=== PATIENT | female | born 1965 | race Caucasian/White ===

== ENCOUNTER 2016-10-27 23:22 | Emergency (ER) | payer BC ==
[~2016-10-27 23:22] MED LIST: ALBUTEROL20 ml INH; BENZONATATE PO; CHANTIX PO; CHANTIX1 MG PO; COMBIVENT U/D3 M2 INH; DOXYCYCLINE HY100 M3 PO; HUMIBID-LA600 MG PO; HYDROCODON-ACE1 EAC7 PO; LEVAQUIN750 MG PO; NO MEDICATIONS; OMNICEF300 M1 PO; PREDNISONE PO; PREDNISONE10 MG/DOSE PO; PROMETH-CODEIN 65 ML PO; PROTONIX PO; ROBITUSSIN A-C S5 ML PO; SODIUM CHLORIDE4 ML INH; SYMBICORT INH; TYLENOL325 M1 PO; ZITHROMAX500 MG PO
[2016-10-27] MEDS ORDERED: NO MEDICATIONS (23:32)
== END 2016-10-28 00:16 | disposition home or self-care (01) ==
LOC: SED 23:22
DX: L03.115 Cellulitis of right lower limb (principal); J44.9 Chronic obstructive pulmonary disease, unspecified; F17.210 Nicotine dependence, cigarettes, uncomplicated
CPT/HCPCS: 99283

== ENCOUNTER 2016-11-09 20:43 | Emergency (ER) | payer BC ==
[2016-11-09 22:55] LABS: DIFF IND NO
[2016-11-09 23:06] LABS: POC - CKMB <1.0 ng/mL (0.0-7.9); POC - TROPONIN <0.05 ng/mL (<=0.05)
[2016-11-09 23:58] LABS: WHITE BLOOD COUNT 8.9 X10e3 (4.0-10.5)
[2016-11-09 23:59] LABS: HEMOGLOBIN 12.6 gm/dL (12.0-16.0); RED BLOOD COUNT 4.33 X10e (3.90-5.30)
[2016-11-10] LABS: HEMATOCRIT 39.2 % (35.0-45.0); MEAN CELL VOLUME 90.5 FL (83-96)
[2016-11-10 00:01] LABS: MEAN CORPUSCULAR HGB CONC 32.1 g/dL (30-36); MEAN PLATELET VOLUME 8.5 FL (6.5-11.5); PLATELET COUNT 250 X10e3 (140-420); RED CELL DISTRIBUTION WIDTH 13.6 % (11.0-15.5)
[2016-11-10 00:02] LABS: EOSINOPHIL% 2.4 % (0.0-7.0); LYMPHOCYTE% 35.2 % (17.0-45.0); MONOCYTE% 5.7 % (3.0-12.0); NEUTROPHIL% 55.9 % (40-75)
[2016-11-10 00:03] LABS: BASOPHIL% 0.8 % (0-2.5); LYMPHOCYTE# 3.1 X10e3 (1.0-3.5); MONOCYTE# 0.5 X10e3 (0-1.0)
[2016-11-10 00:04] LABS: BASOPHIL# 0.1 X10e3 (0-0.3); EOSINOPHIL# 0.2 X10e3 (0-0.7)
== END 2016-11-10 02:14 | disposition home or self-care (01) ==
LOC: CED 20:43
PROVIDERS: Emergency Medicine
DX: L03.115 Cellulitis of right lower limb (principal); K21.9 Gastro-esophageal reflux disease without esophagitis; I10 Essential (primary) hypertension; J44.9 Chronic obstructive pulmonary disease, unspecified; Z90.710 Acquired absence of both cervix and uterus; Z90.49 Acquired absence of other specified parts of digestive tract; F17.210 Nicotine dependence, cigarettes, uncomplicated
CPT/HCPCS: 36415; 82553; 84484; 85025; 87040; 99283; J2407; J7060

== ENCOUNTER 2017-01-04 20:08 | Emergency (ER) | payer BC ==
[~2017-01-04] VITALS: Ht 170.2 cm; Wt 64.4 kg
--- NOTE | ~2017-01-04 | EKG ---
PATIENT: JERMAN MOORE UNIT #: [id number] Ventricular Rate: 86 BPM Atrial Rate: 86 BPM P-R Interval: 154 ms QRS Duration: 94 ms Q-T Interval: 416 ms QTC Calculation(Bezet): 497 ms P [place]: 73 degrees Calculated R [place]: 73 degrees Calculated T [place]: 56 degrees Diagnosis Line: Normal sinus rhythm Diagnosis Line: Possible Left atrial enlargement Diagnosis Line: Prolonged QT Diagnosis Line: Abnormal ECG Diagnosis Line: When compared with ECG of 09-MAY-2016 12:02, Diagnosis Line: Nonspecific T wave abnormality now evident in Diagnosis Line: Anterior leads Diagnosis Line: Confirmed by MEHNAZ MYERS MD ([id number]) on 01/05/2017 Diagnosis Line: 5:12:11 PM INTERPRETING MD: LUCIA MCNAMARA
--- NOTE | ~2017-01-04 | CR72 ---
[facility] A Service of [facility] RADIOLOGY TEXT RESULTS PATIENT: JERMAN MOORE LOCATION: [facility] : 67 UNIT #: [id number] AGE: [address]: Ulises Middleton MD SEX: F ORDER DR: [id number] [facility] [address] [facility]. [place], [place] [address] [id number] MR#: [id number] Acc #: [id number] NAME: JERMAN MOORE : 1965 SEX: F STUDY DATE/TIME: 01/04/2017 22:19 UNIT: LORI ROOM: STUDY DESCRIPTION: CR Chest Single View Portable Attending Physician: Ulises Middleton M.D. Ordering Physician: Ulises Middleton M.D. Primary Care Physician: No Primary Care Physician MEDICAL IMAGING REPORT This report is preliminary unless electronic signature is present EXAM Chest x-ray 01/04/2017 HISTORY 51-year-old female in the ED complaining of shortness of air and productive cough beginning earlier today. History of COPD. TECHNIQUE AP portable upright chest x-ray. FINDINGS Pulmonary hyperinflation is noted compatible with the history of COPD. The lungs appear clear. No visible pulmonary infiltrate, pneumothorax, or pleural effusion. Heart size and pulmonary vascularity are within normal limits. No change since 09/19/2016. IMPRESSION 1. No active disease. 2. Pulmonary hyperinflation, likely COPD. 3. No change since 09/19/2016. Dictated by... Darius Wilkes M.D. THIS IS AN ELECTRONICALLY VERIFIED REPORT Darius Wilkes M.D. at 01/08/2017 11:06 PM MARGARETW/steve TD: 01/05/2017 13:05 JOB #: [id number] MEDICAL IMAGING REPORT [facility] A Service of [facility] RADIOLOGY TEXT RESULTS PATIENT: JERMAN MOORE LOCATION: [facility] : 67 UNIT #: [id number] AGE: [address]: Ulises Middleton MD SEX: F ORDER DR: Page 1 of 1 COPY
[2017-01-04 21:37] LABS: BASOPHIL% 0.4 % (0-2.5); EOSINOPHIL# 0.1 X10e3 (0-0.7); EOSINOPHIL% 1.4 % (0.0-7.0); HEMATOCRIT 38.3 % (35.0-45.0); HEMOGLOBIN 12.6 gm/dL (12.0-16.0); LYMPHOCYTE# 0.8 X10e3 (1.0-3.5); LYMPHOCYTE% 12.3 % (17.0-45.0); MEAN CELL VOLUME 91.2 FL (83-96); MEAN CORPUSCULAR HEMOGLOBIN 29.9 PG (28-34); MEAN CORPUSCULAR HGB CONC 32.8 g/dL (30-36); MEAN PLATELET VOLUME 8.1 FL (6.5-11.5); MONOCYTE# 0.2 X10e3 (0-1.0); MONOCYTE% 3.3 % (3.0-12.0); NEUTROPHIL# 5.4 X10e3 (1.5-7.1); NEUTROPHIL% 82.6 % (40-75); PLATELET COUNT 206 X10e3 (140-420); WHITE BLOOD COUNT 6.6 X10e3 (4.0-10.5)
[2017-01-04 21:38] LABS: DIFF IND NO
[2017-01-04 21:48] LABS: POC - CKMB 1.1 ng/mL (0.0-7.9); POC - TROPONIN <0.05 ng/mL (<=0.05)
[2017-01-04 21:59] LABS: ALBUMIN SERUM 3.8 g/dL (3.5-5.0); BILIRUBIN, DIRECT 0.1 mg/dL (0.0-0.2); BILIRUBIN,INDIRECT 0.2 mg/dL (0.0-0.9); BILIRUBIN,TOTAL 0.3 mg/dL (0.2-2.0); BUN/CREATININE RATIO 12.5; CALCIUM SERUM 8.8 mg/dL (8.4-10.2); CREATININE SERUM 0.8 mg/dL (0.6-1.4); POTASSIUM 3.9 mmol/L (3.5-5.1); PROTEIN TOTAL SERUM 7.1 g/dL (6.0-8.3)
== END 2017-01-05 00:08 | disposition home or self-care (01) ==
LOC: CED 20:08
DX: J44.1 Chronic obstructive pulmonary disease with (acute) exacerbation (principal); I10 Essential (primary) hypertension; F17.210 Nicotine dependence, cigarettes, uncomplicated; Z87.01 Personal history of pneumonia (recurrent); Z90.710 Acquired absence of both cervix and uterus; Z90.49 Acquired absence of other specified parts of digestive tract
CPT/HCPCS: 36415; 71010; 80048; 80076; 82553; 84484; 85025; 93005; 94640; 96374; 99285; J2930

== ENCOUNTER 2017-01-09 09:14 | Inpatient (IN) | payer BC ==
[~2017-01-09] VITALS: Ht 167.6 cm; Wt 66.2 kg
--- NOTE | ~2017-01-09 | OR ---
Unit #: [id number] #: [id number] Patient: JERMAN MOORE [id number] [address] [place], [place] [address] [id number] I MR#: [id number] NAME: JERMAN MOORE. ROOM: [facility] Date of Procedure: 01/10/2017 Admission Date: 01/09/2017 Surgeon: González Calhoun M.D. : 1965 Attending Physician: Aretha Kramer M.D. Primary Care Physician: Deidre Primary Care Physician PROCEDURE OPERATIVE NOTE PROCEDURE PERFORMED Diagnostic and therapeutic bronchoscopy with bronchial washing. INDICATION FOR PROCEDURE Unresolving pneumonia. PREOPERATIVE DIAGNOSIS Multifocal pneumonia. FINDINGS Diffuse thin, creamy kind of color secretions in the left lower lobe, right lower lobe, left main bronchus. PREMEDICATION MAC sedation. DESCRIPTION OF PROCEDURE An informed consent was obtained from the patient after explaining the benefit and risk of this procedure. Patient was prepped and positioned in a proper way. Then she was premedicated with propofol and lidocaine spray. The bronchoscope was advanced through the oral cavity and at the level of the vocal cords, 1% lidocaine was instilled. Then the bronchoscope was advanced in the trachea. At the level of the alexander, 1% lidocaine was instilled again and then the bronchoscope was advanced into the right main bronchus and the right upper lobe, right middle lobe, and right lower lobe were examined which appeared erythematous with diffuse thin secretion which was aspirated. The bronchoscope was retracted and then re-advanced in the left main bronchus and the left upper lobe, lingual, and left lower lobe were examined which appeared also erythematous with diffuse thin secretions that was aspirated and lavaged. Then washing was obtained from the left lower lobe which will be sent for microbiology and cytology. The bronchoscope was retracted out then and patient tolerated her procedure well with no immediate complications. Dictated by... González Calhoun M.D. EA/alexander Unit #: [id number] #: [id number] Patient: JERMAN MOORE TD: 01/10/2017 15:54 JOB #: [id number] PROCEDURE OPERATIVE NOTE Page 1 of 1 X GONZÁLEZ JOSÉ MD PROCEDURE OPERATIVE NOTE
--- NOTE | ~2017-01-09 | HP ---
Unit #: [id number] #: [id number] Patient: JERMAN MOORE [id number] [facility]. [place], [place] [address] [id number] I MR#: [id number] NAME: JERMAN MOORE. ROOM: 21338 Age: 51 Sex: F Admission Date: 01/09/2017 : 1965 Attending Physician: Norma Miner M.D. HISTORY AND PHYSICAL CHIEF COMPLAINT Short of air. HISTORY OF PRESENT ILLNESS The patient is a 51-year-old female with a past medical history of COPD, GERD, osteoarthritis, and irritable bowel syndrome who presented to the emergency department for evaluation of the above. The patient states that she has not been feeling well for about a week. She was seen by her primary care physician a week ago today and given prednisone, as well as an inhaler. She then presented to the emergency department on January 04, 2017. She was diagnosed with COPD and discharged home with prednisone and cefdinir which she took as prescribed. The symptoms have persisted and so she presented to the emergency department today for further evaluation. The patient states that she has had increasing shortness of breath and productive cough. She also reports chills and undocumented fever. She states that she has had decreased appetite but no vomiting. She states that she has loose stool at baseline which she attributes to irritable bowel syndrome. She denies any change in her weight. Upon arrival in the emergency department, temperature was 98.4, pulse 106, respirations 20, blood pressure was 118/63, oxygen saturation 99% on room air. A CT of the chest, PE protocol, showed no PE. However, scattered nodular infiltrates were noted. There is one lesion in the left upper lobe that appears to be cavitary. Septic emboli cannot be ruled out. She received vancomycin in the emergency department. She is being admitted to [facility] for evaluation and further treatment. Other notable labs include white blood cell count of 14.5 and lactic acid 2.2. PAST MEDICAL HISTORY 1. Admission to [facility] May 09 through May 17, 2016, for acute respiratory failure and pneumonia. 2. COPD, not on home oxygen. The patient saw Dr. Trisha Calhoun during the last admission for COPD. 3. GERD. 4. Osteoarthritis. 5. Irritable bowel syndrome. PAST SURGICAL HISTORY 1. Colonoscopy September 03, 2013, was normal. 2. Hysterectomy. 3. Cholecystectomy. Unit #: [id number] #: [id number] Patient: JERMAN MOORE 4. Elbow surgery. 5. Back surgery. 6. Right shoulder surgery. SOCIAL HISTORY The patient smokes a pack of cigarettes daily. She denies alcohol or illicit drug use. She works at the [employer]. FAMILY HISTORY Notable for both parents having COPD. ALLERGIES Acetaminophen. HOME MEDICATIONS None. REVIEW OF SYSTEMS A complete review of systems is negative except as indicated in the HPI. PHYSICAL EXAMINATION VITAL SIGNS: Temperature is 98.4, pulse 106, respirations 20, blood pressure 118/63, and oxygen saturation 99% on room air. GENERAL: Patient is a female who is awake, alert, and in no acute distress. HEENT: Head is atraumatic. Mucous membranes are moist. NECK: Supple. Trachea is midline. CARDIOVASCULAR: Regular rate and rhythm. LUNGS: Inspiratory and expiratory wheezes. Breathing is mildly labored with conversation. ABDOMEN: Soft and nontender with bowel sounds present in all four quadrants. EXTREMITIES: Nontender with no pedal edema. NEUROLOGIC: Patient is awake and alert. She follows commands. PSYCHIATRIC: Mood and affect are normal. Patient is cooperative. SKIN: Skin of examined areas is warm and dry. DIAGNOSTIC STUDIES LABORATORY: Complete blood count notable for white blood cell count of 14.5. Comprehensive metabolic panel notable for potassium of 3.3, ALT is 73, alkaline phosphatase 93. Lactic acid 2.2 IMAGING: CT of the chest, PE protocol, shows no PE. There are scattered nodular infiltrates. One in the left upper lobe is somewhat cavitary in appearance. Septic emboli could not be ruled out. Chest x-ray from January 04 showed pulmonary hyperinflation. ASSESSMENT The patient is a 51-year-old female with: 1. Pneumonia that has failed outpatient treatment with cefdinir. Cavitary lesions are noted on CT. The patient received vancomycin in the emergency department. 2. Sepsis with an initial lactic acid of 2.2. 3. Chronic obstructive pulmonary disease exacerbation with continued tobacco abuse. 4. Hypokalemia with potassium of 3.3. 5. Gastroesophageal reflux disease. 6. Osteoarthritis. Unit #: [id number] #: [id number] Patient: JERMAN MOORE 7. Irritable bowel syndrome. PLAN 1. Admit to intermediate level. 2. Normal saline at 75 mL/hour. 3. Healthy-heart diet. 4. N.p.o. after midnight for possible bronchoscopy. 5. Fall precautions. 6. Blood cultures x2. 7. Sputum culture and sensitivity. 8. Procalcitonin level. 9. Vancomycin IV and Zosyn IV pending further workup. 10. DuoNebs q.4 hours while awake and q.2 hours p.r.n. 11. Solu-Medrol 80 mg IV q.12 hours. 12. Mucinex 600 mg p.o. b.i.d. 13. Supplemental oxygen. 14. A 2D echo for further evaluation of possible septic emboli. 15. Check EKG and cardiac enzymes. 16. Sepsis protocol with repeat lactic acid. 17. Consult Dr. Bruno Calhoun regarding cavitary pneumonia and COPD. 18. Check urinalysis and urine tox screen. 19. Replace potassium. 20. Check magnesium level. 21. Protonix for GI prophylaxis since the patient will be on Solu-Medrol. 22. SCDs for DVT prophylaxis. 23. Repeat labs in the morning including magnesium. 24. Additional workup and consultants based on above. 1. Dictated by Norma Miner M.D. AW/mariella TD: 01/09/2017 15:33 JOB #: [id number] HISTORY AND PHYSICAL Page 1 of 1 X Norma Miner MD X HISTORY AND PHYSICAL
--- NOTE | ~2017-01-09 | EKG ---
PATIENT: JERMAN MOORE UNIT #: [id number] Ventricular Rate: 77 BPM Atrial Rate: 77 BPM P-R Interval: 138 ms QRS Duration: 84 ms Q-T Interval: 418 ms QTC Calculation(Bezet): 473 ms P [place]: 73 degrees Calculated R [place]: 67 degrees Calculated T Leslie: 66 degrees Diagnosis Line: Normal sinus rhythm Diagnosis Line: Cannot rule out Anterior infarct , age Diagnosis Line: undetermined Diagnosis Line: Abnormal ECG Diagnosis Line: When compared with ECG of 04-JAN-2017 22:47, Diagnosis Line: Nonspecific T wave abnormality no longer evident Diagnosis Line: in Anterior leads Diagnosis Line: Confirmed by MEHNAZ MYERS MD ([id number]) on 01/10/2017 Diagnosis Line: 7:16:42 PM INTERPRETING MD: LUCIA MCNAMARA
--- NOTE | ~2017-01-09 | CT16 ---
[facility] A Service of [facility] RADIOLOGY TEXT RESULTS PATIENT: JERMAN MOORE LOCATION: [facility] 335-01 : [birth year] UNIT #: [id number] AGE: [address]: Norma Miner MD SEX: F ORDER DR: [id number] [facility] [address] [facility]. [place], [place] [address] [id number] I MR#: [id number] #: [id number] NAME: JERMAN MOORE. : 1965 SEX: F STUDY DATE/TIME: 01/09/2017 11:47 UNIT: CEDOF ROOM: 96824 STUDY DESCRIPTION: CT Angio Chest for PE Attending Physician: Norma Miner M.D. Ordering Physician: Shweta Bautista Pa-C Primary Care Physician: Primary Care Physician No MEDICAL IMAGING REPORT This report is preliminary unless electronic signature is present EXAM CT scan of the chest with pulmonary embolus protocol INDICATIONS Shortness of air and cough for 6 days. TECHNIQUE Patient was given 80 mL of Isovue 370 and spiral imaging was performed through the chest. 3-D reconstructions through the pulmonary arteries generated. This CT exam was performed with one or more of the following radiation dose reduction techniques: automatic exposure control, adjustment of mA and/or kV according to patient size, and iterative reconstruction. FINDINGS The thyroid gland is normal. The aorta is normal in size and there is no dissection. There is optimal opacification of the pulmonary arteries and there is no CT evidence of pulmonary embolus. There is minimal apical fibrosis. There are small areas of nodular infiltrates scattered throughout the lungs measuring 15 mm or less. One has a tiny cavity within it and that is in the left upper lobe and that measures about 8 mm in diameter. The visualized portions of the upper abdomen are normal except for previous cholecystectomy. The bones are normal. IMPRESSION 1. No CT evidence of pulmonary embolus or aortic dissection. 2. There are a few small nodular infiltrates scattered throughout the lungs and one of these areas there is a small cavity within it. that is in the left upper lobe and it measures only about 7-8 mm in diameter. The appearance suggests some type of infectious etiology. Septic emboli cannot be completely excluded. Dictated by... [facility] A Service of [facility] RADIOLOGY TEXT RESULTS PATIENT: JERMAN MOORE LOCATION: [facility] 335-01 : [birth year] UNIT #: [id number] AGE: [address]: Norma Miner MD SEX: F ORDER DR: Manohar Jolly M.D. THIS IS AN ELECTRONICALLY VERIFIED REPORT Manohar Jolly M.D. at 01/09/2017 10:08 PM FEL/to TD: 01/09/2017 16:32 JOB #: [id number] MEDICAL IMAGING REPORT Page 1 of 1 COPY
--- NOTE | ~2017-01-09 | CO ---
Unit #: [id number] #: [id number] Patient: JERMAN MOORE [id number] [address] [place], [place] [address] [id number] I MR#: [id number] NAME: JERMAN MOORE. ROOM: 335 Age: 51 Sex: F Admission Date: 01/09/2017 : 1965 Attending Physician: Aretha Kramer M.D. Primary Care Physician: Deidre Primary Care Physician Consultation Date: 01/10/2017 CONSULTATION REPORT REASON FOR CONSULT Abnormal CT chest. HISTORY OF PRESENT ILLNESS This is a very pleasant 51-year-old female with past medical history significant for COPD, smoking, GERD, osteoarthritis who presented to the emergency room with difficulty breathing. Patient stated that she has been feeling sick for a week. She presented to her primary care physician a week ago where she was given azithromycin and prednisone. Patient went back to work the next day, and after 3 days of medicine, she was feeling worse so she finally presented to our emergency room, where she prescribed another course of steroid and antibiotics and then she was discharged home. Patient also went back to work the next day, and after 2 days at work, she felt that she was just worsening and not getting any better, so she finally presented to our emergency room. In the ER her workup was consistent with multifocal pneumonia concerning for septic emboli. PAST MEDICAL HISTORY 1. COPD. 2. GERD. 3. Osteoarthritis. 4. Irritable bowel syndrome. PAST SURGICAL HISTORY 1. Colonoscopy. 2. Hysterectomy. 3. Cholecystectomy. 4. Back surgery. 5. Elbow surgery. 6. Right shoulder surgery. SOCIAL HISTORY Patient smokes at least a pack a day. No history of alcohol or drug abuse. She works at the [employer]. FAMILY HISTORY COPD. ALLERGIES Acetaminophen. HOME MEDICATIONS None. Unit #: [id number] #: [id number] Patient: JERMAN MOORE REVIEW OF SYSTEMS Twelve-point review of systems was obtained and was negative except for what was mentioned in the HPI. PHYSICAL EXAMINATION GENERAL: The patient is in acute distress. VITAL SIGNS: Blood pressure is 121/62, respiratory rate 18, O2 saturation 96% on 4 liters nasal cannula. HEENT: Atraumatic, normocephalic. PERRLA, EOMI. NECK: Supple. No JVD. No lymphadenopathy. CHEST: Bilateral diffuse rhonchi and wheezing. HEART: S1, S2. No murmur, gallops or rubs. ABDOMEN: Soft, nontender. Bowel sounds are positive. No hepatosplenomegaly. EXTREMITIES: No edema or cyanosis. SKIN: No rashes. CHIEF OPERATING OFFICER: Awake, alert, oriented x3. No focal motor/sensory deficits. LABS AND OTHER TESTS LABS: Creatinine is 0.5, potassium 3.8, CO2 24. White blood count 14.9, hemoglobin 11.7. IMAGING: CT chest is noted and reviewed by me. ASSESSMENT 1. Acute hypoxic respiratory failure. 2. Pneumonia, likely gram-positive/atypical. 3. Acute exacerbation of COPD. 4. Smoking. 5. Chronic anemia. 6. GERD. 7. Osteoarthritis. PLAN 1. Patient's oxygen will be weaned down as tolerated. 2. Will continue gentle IV hydration. 3. IV steroids, bronchodilator and mucolytics. 4. Vancomycin, Zosyn pending culture. 5. Bronchoscopy today. 6. Patient was counselled more than 10 minutes for smoking cessation. She stated that she quit for 13 months in the past, but she picked up again. 7. Will add nicotine patches for now. 8. DVT prophylaxis. NOTE: I would like to thank Dr. Miner for allowing me to be part of this patient's care. Dictated by... González Calhoun M.D. EA/renato TD: 01/10/2017 15:20 Unit #: [id number] #: [id number] Patient: JERMAN MOORE S JOB #: [id number] CONSULTATION REPORT Page 1 of 1 X GONZÁLEZ JOSÉ MD X CONSULTATION REPORT
--- NOTE | ~2017-01-09 | DS ---
Unit #: [id number] #: [id number] Patient: JERMAN MOORE [id number] [address] [address] [id number] I MR#: [id number] NAME: JERMAN MOORE. ROOM: 335 Age: 51 Sex: F Admission Date: 01/09/2017 : 1965 Discharge Date: 01/14/2017 Attending Physician: Aretha Kramer M.D. Primary Care Physician: No Primary Care Physician DISCHARGE SUMMARY DISCHARGE DIAGNOSES 1. Acute hypoxic respiratory failure. 2. Pneumonia. 3. No septic emboli, no endocarditis. 4. Acute chronic obstructive pulmonary disease with exacerbation. 5. Smoking. 6. Transaminitis. 7. Gastroesophageal reflux disease. 8. Irritable bowel syndrome. 9. Osteoarthritis. CONSULTATION Dr. Calhoun. PROCEDURES Patient had bronchoscopy. LAB DATA Potassium 4.0, magnesium 2.1. Hepatitis panel negative. Sputum culture shows Klebsiella pneumoniae. WBC 11.6, hemoglobin 11.6, platelets 221. Legionella negative. HIV nonreactive. Urine culture negative. Echocardiogram shows no vegetation, ejection fraction 60-65%. ALLERGIES None. DISCHARGE MEDICATIONS 1. Nicotine 40 mg transdermal daily. 2. Omnicef 300 p.o. b.i.d. 3. Humibid LA 600 p.o. b.i.d. 4. Prednisone tapering dose. 5. Albuterol inhaler, 2 puffs inhalation 4x daily p.r.n. Unit #: [id number] #: [id number] Patient: JERMAN MOORE HOSPITALIZATION COURSE 51-year-old admitted because of shortness of breath. 1. Acute hypoxic respiratory failure with bilateral pulmonary emboli. Cultures growing Klebsiella. Patient had bronchoscopy. Culture is negative from bronchoscopy. Patient was started on broad spectrum antibiotics. Patient will be discharged on Omnicef upon discharge with albuterol. 2. COPD with exacerbation, started on Duo-Nebs and IV Solu-Medrol. Currently breathing better. Patient will be discharged on albuterol and prednisone tapering dose. 3. Initially, bilateral pulmonary infiltrates was started to be septic emboli and endocarditis but those two diagnoses has been ruled out. 4. Smoking, advised to quit. Patient will be discharged on nicotine patch. Discharge home. Follow with family physician on 1 week time[address] Follow with Dr. Calhoun, pulmonary, in 2 weeks time. Discharge time taken is 31 minutes. Dictated by... Clemente Thayer/anton TD: 01/14/2017 14:12 JOB #: [id number] DISCHARGE SUMMARY Page 1 of 1 X Aretha Kramer MD X DISCHARGE SUMMARY
[2017-01-09 10:02] LABS: BASOPHIL% 0.2 % (0-2.5); EOSINOPHIL# 0.1 X10e3 (0-0.7); EOSINOPHIL% 0.6 % (0.0-7.0); HEMATOCRIT 42.5 % (35.0-45.0); LYMPHOCYTE# 2.4 X10e3 (1.0-3.5); LYMPHOCYTE% 16.7 % (17.0-45.0); MEAN CELL VOLUME 90.9 FL (83-96); MEAN PLATELET VOLUME 7.9 FL (6.5-11.5); MONOCYTE# 0.8 X10e3 (0-1.0); MONOCYTE% 5.3 % (3.0-12.0); NEUTROPHIL# 11.2 X10e3 (1.5-7.1); NEUTROPHIL% 77.2 % (40-75); PLATELET COUNT 229 X10e3 (140-420); RED BLOOD COUNT 4.68 X10e (3.90-5.30); RED CELL DISTRIBUTION WIDTH 14.1 % (11.0-15.5); WHITE BLOOD COUNT 14.5 X10e3 (4.0-10.5)
[2017-01-09 10:15] LABS: DIFF IND NO
[2017-01-09 10:30] LABS: ALBUMIN SERUM 3.6 g/dL (3.5-5.0); BILIRUBIN,TOTAL 0.7 mg/dL (0.2-2.0); BUN/CREATININE RATIO 18.57; CALCIUM SERUM 8.8 mg/dL (8.4-10.2); CREATININE SERUM 0.7 mg/dL (0.6-1.4); POTASSIUM 3.3 mmol/L (3.5-5.1)
[2017-01-09] MEDS ORDERED: NO MEDICATIONS (13:49)
[2017-01-09 16:14] LABS: CK TOTAL 28 IU/L (26-140)
[2017-01-09 19:33] LABS: AMPHETAMINE NEG (NEG); BARBITURATES NEG (NEG); BENZODIAZEPINES NEG (NEG); COCAINE NEG (NEG); MARIJUANA NEG (NEG); OPIATES NEG (NEG); TRICYCLIC ANTIDEPRESSANTS NEG (NEG); U METHADONE NEG (NEG)
[2017-01-10 06:09] LABS: HEMATOCRIT 35.2 % (35.0-45.0); MEAN CELL VOLUME 90.8 FL (83-96); MEAN CORPUSCULAR HEMOGLOBIN 30.1 PG (28-34); MEAN CORPUSCULAR HGB CONC 33.2 g/dL (30-36); MEAN PLATELET VOLUME 8.1 FL (6.5-11.5); RED BLOOD COUNT 3.87 X10e (3.90-5.30); WHITE BLOOD COUNT 14.9 X10e3 (4.0-10.5)
[2017-01-10 06:18] LABS: HEMOGLOBIN 11.7 gm/dL (12.0-16.0)
[2017-01-10 06:44] LABS: BILIRUBIN,TOTAL 0.7 mg/dL (0.2-2.0); CALCIUM SERUM 8.7 mg/dL (8.4-10.2); CREATININE SERUM 0.5 mg/dL (0.6-1.4); GLOM FILT RATE Estimated 112.9 mL/min (>60); MAGNESIUM 2.2 mg/dL (1.6-3.0); POTASSIUM 3.8 mmol/L (3.5-5.1); PROTEIN TOTAL SERUM 6.2 g/dL (6.0-8.3)
[2017-01-11 04:39] LABS: HEMOGLOBIN 11.5 gm/dL (12.0-16.0); MEAN CELL VOLUME 91.4 FL (83-96); MEAN CORPUSCULAR HGB CONC 32.8 g/dL (30-36); MEAN PLATELET VOLUME 7.8 FL (6.5-11.5); RED BLOOD COUNT 3.83 X10e (3.90-5.30); RED CELL DISTRIBUTION WIDTH 14.2 % (11.0-15.5); WHITE BLOOD COUNT 18.8 X10e3 (4.0-10.5)
[2017-01-11 05:55] LABS: ALBUMIN SERUM 2.7 g/dL (3.5-5.0); BILIRUBIN,TOTAL 0.4 mg/dL (0.2-2.0); CALCIUM SERUM 8.7 mg/dL (8.4-10.2); CREATININE SERUM 0.5 mg/dL (0.6-1.4); GLOM FILT RATE Estimated 112.9 mL/min (>60); POTASSIUM 4.3 mmol/L (3.5-5.1); PROTEIN TOTAL SERUM 5.5 g/dL (6.0-8.3)
[2017-01-12 06:25] LABS: BUN/CREATININE RATIO 27.5; CALCIUM SERUM 8.5 mg/dL (8.4-10.2); CREATININE SERUM 0.4 mg/dL (0.6-1.4); GLOM FILT RATE Estimated 121.5 mL/min (>60); POTASSIUM 4.1 mmol/L (3.5-5.1)
[2017-01-13 06:05] LABS: HEMATOCRIT 34.4 % (35.0-45.0); HEMOGLOBIN 11.6 gm/dL (12.0-16.0); MEAN CELL VOLUME 90.4 FL (83-96); MEAN CORPUSCULAR HEMOGLOBIN 30.4 PG (28-34); MEAN CORPUSCULAR HGB CONC 33.7 g/dL (30-36); MEAN PLATELET VOLUME 7.9 FL (6.5-11.5); RED BLOOD COUNT 3.81 X10e (3.90-5.30); RED CELL DISTRIBUTION WIDTH 14.3 % (11.0-15.5); WHITE BLOOD COUNT 11.6 X10e3 (4.0-10.5)
[2017-01-13 07:26] LABS: HA AB IGM (HEPPAN) Nonreactive (()); HB CORE AB IGM (HEPPAN) Nonreactive (Nonreactive); HB S AG (HEPPAN) Nonreactive (Nonreactive); HEP C AB (HEPPAN) Nonreactive (Nonreactive)
[2017-01-14 06:08] LABS: MAGNESIUM 2.1 mg/dL (1.6-3.0)
[2017-01-14] MEDS ORDERED: NICOTINE TRANSD14 MG TOP (11:55)
[2017-01-14] MEDS ORDERED: OMNICEF300 MG PO (11:55)
[2017-01-14] MEDS ORDERED: HUMIBID-LA600 MG PO (11:57)
[2017-01-14] MEDS ORDERED: ALBUTEROL INH (11:58)
[2017-01-14] MEDS ORDERED: PREDNISONE10 M1 (11:59)
== END 2017-01-14 13:34 | disposition home or self-care (01) | DRG 853 ==
LOC: CED 09:14 → CEDOF 14:55 → C3A PCU 14:55 → CED 15:30 → CEDOF 15:30 → C3A PCU 16:42 → CEDOF 16:42 → C3A PCU 01-10 07:31
PROVIDERS: Family Medicine; Internal Medicine; Internal Medicine Pulmonary Disease; Physician Assistant Medical
PROC: B24BZZZ Ultrasonography of Heart with Aorta (ICD-10-PCS; 2017-01-10)
PROC: 0B9J8ZX Drainage of Left Lower Lung Lobe, Via Natural or Artificial Opening Endoscopic, Diagnostic (ICD-10-PCS; principal; 2017-01-10 14:00)
PROC: 0B9F8ZZ Drainage of Right Lower Lung Lobe, Via Natural or Artificial Opening Endoscopic (ICD-10-PCS; 2017-01-10 14:00)
DX: A41.9 Sepsis, unspecified organism (principal); J96.01 Acute respiratory failure with hypoxia; I26.99 Other pulmonary embolism without acute cor pulmonale; J15.0 Pneumonia due to Klebsiella pneumoniae; J44.0 Chronic obstructive pulmonary disease with (acute) lower respiratory infection; J44.1 Chronic obstructive pulmonary disease with (acute) exacerbation; E44.1 Mild protein-calorie malnutrition; Z68.1 Body mass index [BMI] 19.9 or less, adult; F17.210 Nicotine dependence, cigarettes, uncomplicated; R74.0 Nonspecific elevation of levels of transaminase and lactic acid dehydrogenase [LDH]; K21.9 Gastro-esophageal reflux disease without esophagitis; K58.9 Irritable bowel syndrome, unspecified; M19.90 Unspecified osteoarthritis, unspecified site; Z71.6 Tobacco abuse counseling; E87.6 Hypokalemia; Z90.49 Acquired absence of other specified parts of digestive tract; Z90.710 Acquired absence of both cervix and uterus; Z83.6 Family history of other diseases of the respiratory system
CPT/HCPCS: 71275; 80048; 80053; 80074; 80202; 80307; 82308; 82550; 83605; 83735; 84132; 84484; 85025; 85027; 87040; 87070; 87077; 87086; 87102; 87106; 87116; 87186; 87205; 87206; 87278; 87806; 87899; 88108; 88305; 88312; 89190; 90732; 93005; 93306; 94640; 94760; 96374; 99285; G0009; G0238; J0171; J1885; J2543; J2920; J2930; J3370; Q9967